=== PATIENT | female | born 1940 | race Caucasian/White ===

== ENCOUNTER 2020-10-09 08:16 | Emergency (ER) | payer MEDICARE ==
[2020-10-09] MEDS ORDERED: hydrALAZINE 20 MG/ML SDV IVPUSH ONE (08:26)
--- NOTE | 2020-10-09 08:31 | EDM.PDOC ---
ED HPI GENERAL MEDICAL PROBLEM - General Chief Complaint: Cardiovascular Problem Stated Complaint: CHEST PAIN Time Seen by Provider: 10/09/20 08:26 Source of Information: Reports: Patient History Limitations: Reports: No Limitations - History of Present Illness INITIAL COMMENTS - FREE TEXT/NARRATIVE: 79-year-old female sent over to the ED from the radiology department where she was undergoing a Lexiscan stress test. Patient has known hypertension and was asked to place her beta-blockers on hold for the test. Starting blood pressure this morning was 164/80 with a heart rate of 72 with some PACs and PVCs which are multiform. Within 6 minutes of testing blood pressure was 198/87 with a heart rate of 79 and within 11 minutes it was over 200. They watched her for an hour and her blood pressure remains elevated at greater than 200 systolic over 114. Blood pressure on arrival in the ED was 218 no 213/110. She did develop associated pain between her shoulder blades which we take as an angina equivalent. Fairly this is the same type of pain she experiences when she shovels snow suggesting a right coronary artery lesion or inferior wall ischemia. Patient's medications are Toprol 100 mg XL twice daily and diltiazem to 40 mg extended release once daily. Onset: Today, Sudden Onset Date: 10/09/20 Onset Time: 07:20 Duration: Minutes:, Improving Location: Reports: Back, Other (Pressure between the shoulder blades in her neck. Persistently elevated blood pressure greater than 210/110.) Quality: Reports: Ache, Pressure Severity: Mild (Came to the emergency department.) Improves with: Reports: Other (Improved spontaneously after the initial dose of Lexiscan was given.) Context: Reports: Other (Patient was being giving a Lexiscan ECG stress test when she developed markedly uncontrolled blood pressure associate with chest pressure discomfort between her shoulder blades which we anticipate is angina equivalent in the inferior wall.). Denies: Activity, Exercise, Lifting, Sick Contact, Trauma Associated Symptoms: Reports: Shortness of Breath (Very mild.). Denies: Confusion, Chest Pain, Cough, cough w sputum, Diaphoresis, Fever/Chills, Headaches, Loss of Appetite, Malaise, Nausea/Vomiting, Rash, Seizure, Syncope, Weakness Treatments SENIOR POLICY ADVISOR: Reports: Other (see below) (None.) - Related Data Allergies Allergy/AdvReac Type Severity Reaction Status Date / Time No Known Allergies Allergy Verified 10/09/20 08:23 Home Meds: Home Meds Bimatoprost [LUMIGAN 0.01% Ophth Soln] 2.5 ml EYEBOTH BEDTIME 10/09/20 [History] Furosemide [Lasix] 40 mg PO DAILY 10/09/20 [History] Levothyroxine Sodium [Synthroid] 25 mcg PO DAILY 10/09/20 [History] Metoprolol Succinate [Toprol Xl] 100 mg PO BID 10/09/20 [History] Potassium Gluconate [Potassium] 600 mg PO DAILY 10/09/20 [History] atorvaSTATin Calcium [Atorvastatin Calcium] 80 mg PO DAILY 10/09/20 [History] dilTIAZem HCL [Cartia Xt] 240 mg PO DAILY 10/09/20 [History] Past Medical History HEENT History: Reports: Glaucoma (Is taking drops for her eyes daily.) Cardiovascular History: Reports: High Cholesterol, Hypertension, [place] Musculoskeletal History: Reports: Osteoarthritis (Mostly knees hips low back and neck.), Osteoporosis - Past Surgical History GI Surgical History: Reports: Cholecystectomy Social & Family History - Living Situation & Occupation Living situation: Reports: Occupation: Retired ED ROS GENERAL - Review of Systems Review Of Systems: See Below Constitutional: Reports: Malaise, Fatigue. Denies: Fever, Chills HEENT: Reports: Glasses Respiratory: Reports: Shortness of Breath. Denies: Wheezing, Pleuritic Chest Pain, Cough, Sputum Cardiovascular: Reports: Blood Pressure Problem, Dyspnea on Exertion. Denies: Chest Pain, Claudication, Edema, Lightheadedness, Orthopnea (Hypertension), Palpitations Endocrine: Reports: Fatigue GI/Abdominal: Reports: Constipation : Reports: Frequency, Incontinence (Urge and stress components.) Musculoskeletal: Reports: Back Pain, Joint Pain (Knees hips neck and shoulders at times) Skin: Reports: No Symptoms Neurological: Reports: No Symptoms Psychiatric: Reports: No Symptoms Hematologic/Lymphatic: Reports: No Symptoms Immunologic: Reports: No Symptoms ED EXAM, GENERAL - Physical Exam Exam: See Below Exam Limited By: No Limitations General Appearance: Alert, WD/WN, No Apparent Distress, Other (Upon arrival in the ED temperature was 36.4 with a heart rate of 71 and sinus. Respiratory is 18 with O2 sats of 97% room air BP 213/110) Eye Exam: Bilateral Eye: Normal Inspection (No scleral icterus or blepharal pallor.), PERRL Throat/Mouth: Normal Inspection, Normal Lips, Normal Oropharynx Head: Atraumatic, Normocephalic Neck: Normal Inspection, Tender Lateral, Other (No JVD.). No: Carotid Bruit, Lymphadenopathy (L), Lymphadenopathy (R) Respiratory/Chest: No Respiratory Distress, Lungs Clear, Normal Breath Sounds, No Accessory Muscle Use Cardiovascular: Normal Peripheral Pulses, Regular Rate, Rhythm, No Edema, No Gallop, No Murmur, No Rub Peripheral Pulses: 2+: Carotid (L), Carotid (R), Posterior Tibial (L), Posterior Tibial (R), Dorsalis Pedis (L), Dorsalis Pedis (R) GI/Abdominal: Normal Bowel Sounds, Soft, Non-Tender, No Organomegaly, No Abnormal Bruit, No Mass, Pelvis Stable Back Exam: Normal Inspection, Full Range of Motion. No: CVA Tenderness (L), CVA Tenderness (R) Extremities: Normal Inspection, Normal Range of Motion, Non-Tender, No Pedal Edema Neurological: Alert, Oriented, CN II-XII Intact, Normal Cognition Psychiatric: Normal Affect, Normal Mood Skin Exam: Warm, Dry, Intact, Normal Color, No Rash #1 Interpretation EKG Date: 10/09/20 Time: 08:27 Rhythm: NSR Rate (Beats/Min): 70 [place]: LAD-Left [place] Deviation (-35 degrees) P-Wave: Present QRS: Other (There is a right bundle branch block pattern. 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 There is decreased voltage in the precordial leads.) ST-T: Other (T waves are inverted in leads II, III and aVF as well as V3 nonspecific.) QT: Prolonged EKG Interpretation Comments: Abnormal ECG Course - Vital Signs Last Recorded V/S: Last Vital Signs Temp 36.4 C 10/09/20 08:32 Pulse 75 10/09/20 10:06 Resp 12 10/09/20 10:06 BP 162/79 H 10/09/20 10:06 Pulse Ox 99 10/09/20 10:06 - Orders/Labs/Meds Orders: Active Orders 24 hr Category Date Time Status EKG Documentation Completion [RC] STAT Care 10/09/20 08:30 Active Labs: Laboratory Tests 10/09/20 10/09/20 Range/Units 08:41 08:41 WBC 6.34 (3.98-10.04) K/mm3 RBC 3.41 L (3.98-5.22) M/mm3 Hgb 9.8 L (11.2-15.7) gm/dl Hct 33.6 L (34.1-44.9) % MCV 98.5 H (79.4-94.8) fl MCH 28.7 (25.6-32.2) pg MCHC 29.2 L (32.2-35.5) g/dl RDW Std Deviation 52.4 H (36.4-46.3) fL Plt Count 270 (182-369) K/mm3 MPV 11.5 (9.4-12.3) fl Neut % (Auto) 69.1 (34.0-71.1) % Lymph % (Auto) 19.1 L (19.3-51.7) % [place] % (Auto) 8.0 (4.7-12.5) % Eos % (Auto) 3.0 (0.7-5.8) Baso % (Auto) 0.6 (0.1-1.2) % Neut # (Auto) 4.38 (1.56-6.13) K/mm3 Lymph # (Auto) 1.21 (1.18-3.74) K/mm3 [place] # (Auto) 0.51 H (0.24-0.36) K/mm3 Eos # (Auto) 0.19 (0.04-0.36) K/mm3 Baso # (Auto) 0.04 (0.01-0.08) K/mm3 Sodium 146 H (136-145) mEq/L Potassium 3.3 L (3.5-5.1) mEq/L Chloride 106 (98-107) mEq/L Carbon Dioxide 28 (21-32) mEq/L Anion Gap 15.3 H (5-15) BUN 18 (7-18) mg/dL Creatinine 0.9 (0.55-1.02) mg/dL Est Cr Clr Drug Dosing 41.93 mL/min Estimated GFR (MDRD) > 60 (>60) mL/min BUN/Creatinine Ratio 20.0 H (14-18) Glucose 109 (83-115) mg/dL Calcium 8.8 (8.5-10.1) mg/dL Magnesium 2.0 (1.8-2.4) mg/dl Total Bilirubin 0.5 (0.2-1.0) mg/dL AST 16 (15-37) U/L ALT 23 (14-59) U/L Alkaline Phosphatase 89 (46-116) U/L CK-MB (CK-2) 0.8 (0-3.6) ng/ml Troponin I < 0.017 (0.00-0.056) ng/mL Total Protein 6.5 (6.4-8.2) g/dl Albumin 3.7 (3.4-5.0) g/dl Globulin 2.8 gm/dL Albumin/Globulin Ratio 1.3 (1-2) Meds: Medications Discontinued Medications Generic Name Dose Route Start Last Admin Trade Name Freq PRN Reason Stop Dose Admin Enalaprilat 1.25 mg 10/09/20 09:17 10/09/20 09:24 Vasotec Iv IVPUSH 10/09/20 09:18 1.25 mg ONETIME ONE Administration Hydralazine HCl 10 mg 10/09/20 08:26 10/09/20 08:45 Apresoline IVPUSH 10/09/20 08:27 10 mg ONETIME ONE Administration - Radiology Interpretation Free Text/Narrative:: 79-year-old female presents to the ED for evaluation of persistent the elevated blood pressure after having a Lexiscan ECG stress test in the radiology department. Blood pressure gradually climb from initial blood pressure of 164/80 and heart rate of 72-2 100/90 within 8 minutes. Upon arrival in the ED it is 213/110 and they did watch her for about an hour in the department. She did initially have pain between her shoulder blades which we take is an angina equivalent as this was similar to the pain she was experiencing was shoveling snow. 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 This would correlate with pain in her back or nape of neck. At the time she was seen in e ED the back pain was fading away. Blood pressure did however remain elevated at 213/110. She will be for a Lexiscan studies in about an hour and a half At this time she will receive hydralazine 10 mg IV. Routine labs and ECG to be obtained. Of note her beta-blockers were placed on hold for the stress test. Is normally on 100 mg of Toprol twice daily and diltiazem to 40 mg extended release daily in the morning as well.. - Re-Assessments/Exams Free Text/Narrative Re-Assessment/Exam: 10/09/20 08:50 pressure is currently 187/87 with a heart rate of 66. O2 sats 99% on the monitor. 10/09/20 09:18 blood pressure remains persistently elevated at 185/77. Heart rate is 84. She will be given Vasotec 1.25 mg IV push. 10/09/20 09:57 pressure is down to 164/83. Heart rate is 73 and sinus . O2 sats are 100% room air. 10/09/20 10:30: Blood pressure dropped to 149/74. She feels fine. She will therefore complete her second part of her Lexiscan. Plan will be to discharge her to home after this is completed and she will restart her blood pressure medications at home as per her usual.White count is normal at 6.34. The differential shows 69% neutrophils on the auto differential. Hemoglobin is low at 9.8 with hematocrit of 33.6 MCV is slightly elevated at 98.5. Platelet count 270,000. Sodium is 146 with a potassium of 3.3 chloride 106 with a bicarb of 28 anion gap is 15.3. BUN is 18 with a creatinine of 0.9 GFR is greater than 60. Glucose is 109 calcium is 8.8 magnesium is 2.0 liver function normal CK-MB fraction is 0.8 troponin I is less than 0.017 total protein 6.5 with an albumin fraction of 3.7. Departure - Departure Time of Disposition: 11:23 Disposition: Home, Self-Care 01 Reason for Transfer *Q: Other Condition: Fair Clinical Impression: Elevated blood pressure reading without diagnosis of hypertension Instructions: Hypertension, Adult, [id number] Referrals: Beba Wren MD [Primary Care Provider] - Forms: ED Department Discharge Additional Instructions: Evaluation in the emergency room today in regards to markedly elevated blood pressure that occurred during your Lexiscan stress test on your heart in the radiology department today. Blood pressure went up to as high as 220/118. You were monitored for over an hour and blood pressure remained markedly elevated during that timeframe. You were therefore brought to the emergency room for treatment of your blood pressure. You were given medications hydralazine 10 mg initially with an improvement in your blood pressure to 185/100. You therefore received medication take 1.25 mg IV which further dropped her blood pressure down to 149/74. Test did not reveal any abnormalities in your magnesium potassium or other electrolytes that would be important to correct. It is therefore safe to resume your normal medications except your Toprol this morning. Take your second Toprol dose tonight as per usual. Resume all medications as before starting tomorrow. I believe the Lexiscan study suggest that you do have problems with blood supply to the inferior and back areas of your heart which means cardiology consultation and likely need for an angiogram with possible stent placement. Sepsis Event Note (ED) - Focused Exam Vital Signs: Vital Signs Temp Pulse Resp BP BP Pulse Ox 10/09/20 10:06 75 12 162/79 H 99 10/09/20 09:24 192/97 H 10/09/20 09:21 77 18 192/97 H 100 10/09/20 08:32 36.4 C 71 18 213/110 H 97 - My Orders Last 24 Hours: My Active Orders 10/09/20 08:30 EKG Documentation Completion [RC] STAT - Assessment/Plan Last 24 Hours: My Active Orders 10/09/20 08:30 EKG Documentation Completion [RC] STAT
[2020-10-09] MEDS ORDERED: Enalaprilat 1.25 MG/ML SDV IVPUSH ONE (09:17)
== END 2020-10-09 12:17 | disposition home or self-care (01) ==
LOC: JD.ED 08:16
DX: I10 Essential (primary) hypertension (principal); E78.00 Pure hypercholesterolemia, unspecified; I25.2 Old myocardial infarction; Z79.899 Other long term (current) drug therapy; R06.00 Dyspnea, unspecified
CPT/HCPCS: 36415; 78452; 80053; 82553; 83735; 84484; 85025; 93005; 93017; 96374; 96375; 99285; A9500; J0360; J2785; 93010; 99284